=== PATIENT | female | born 1995 | race Caucasian/White ===

== ENCOUNTER 2020-04-24 22:39 | Inpatient (IN) | payer BC ==
[2020-04-24] MEDS ORDERED: Ampicillin 2 GM in Sodium Chloride 0.9% 100 ML IV ONE (23:17)
[2020-04-24] MEDS ORDERED: Sodium Chloride 0.9% 10 ML Syringe FLUSH PRN (23:17)
[2020-04-24] MEDS ORDERED: Ondansetron 4 MG/2 ML SDV IVPUSH PRN (23:17)
[2020-04-24] MEDS ORDERED: Calcium Carbonate 500 MG Tab.Chew PO PRN (23:17)
[2020-04-24] MEDS ORDERED: Oxytocin/Lactated Ringers 10 UNIT/1,000 ML BAG IV SCH (23:30)
[2020-04-25] MEDS ORDERED: Bupivacaine 0.25% 10 ML SDV ONE
[2020-04-25] MEDS ORDERED: fentaNYL 100 MCG/2 ML SDV EPIDUR PRN (01:14)
[2020-04-25] MEDS ORDERED: Ondansetron 4 MG/2 ML SDV IVPUSH PRN (01:14)
[2020-04-25] MEDS ORDERED: ePHEDrine 50 MG/ML SDV IVPUSH PRN (01:14)
[2020-04-25] MEDS ORDERED: Phenylephrine 1 MG in Sodium Chloride 0.9% 10 ML IV SCH (01:15)
--- NOTE | 2020-04-25 01:16 | PCM.PREANE ---
Preanesthetic Assessment - Procedure Proposed Procedure: RISSA - Anesthesia/Transfusion/Family Hx Anesthesia History: Prior Anesthesia Without Reaction Family History of Anesthesia Reaction: No Transfusion History: No Prior Transfusion(s) Intubation History: Unknown - Review of Systems General: No Symptoms Pulmonary: No Symptoms (Former smoker: 2015 quit) Cardiovascular: No Symptoms Gastrointestinal: No Symptoms (GERD) Neurological: No Symptoms Other: Reports: None, Easy Bruising, Sinus Problem (seasonal allergies) - Physical Assessment NPO Status Date: 04/24/20 NPO Status Time: 19:00 Vital Signs: Last Vital Signs Temp 36.8 C 04/24/20 22:39 Pulse 77 04/24/20 22:39 Resp 16 04/24/20 22:39 BP 131/75 04/24/20 22:39 Pulse Ox 98 04/24/20 22:39 Height: 1.6 m Weight: 109.588 kg ASA Class: 2 Mental Status: Alert & Oriented x3 Airway Class: Mallampati = 2 Dentition: Reports: Normal Dentition, Caries Thyro-Mental Finger Breadths: 3 Mouth Opening Finger Breadths: 3 ROM/Head Extension: Full Lungs: Clear to Auscultation, Normal Respiratory Effort Cardiovascular: Regular Rate, Regular Rhythm, No Murmurs - Lab Values: Laboratory Last Values WBC 12.67 K/mm3 (3.98-10.04) H 04/24/20 23:36 RBC 4.30 M/mm3 (3.98-5.22) 04/24/20 23:36 Hgb 12.5 gm/dl (11.2-15.7) 04/24/20 23:36 Hct 37.6 % (34.1-44.9) 04/24/20 23:36 MCV 87.4 fl (79.4-94.8) 04/24/20 23:36 MCH 29.1 pg (25.6-32.2) 04/24/20 23:36 MCHC 33.2 g/dl (32.2-35.5) 04/24/20 23:36 RDW Std Deviation 45.3 fL (36.4-46.3) 04/24/20 23:36 Plt Count 273 K/mm3 (182-369) 04/24/20 23:36 MPV 10.1 fl (9.4-12.3) 04/24/20 23:36 Neut % (Auto) 72.3 % (34.0-71.1) H 04/24/20 23:36 Lymph % (Auto) 19.7 % (19.3-51.7) 04/24/20 23:36 [place] % (Auto) 5.9 % (4.7-12.5) 04/24/20 23:36 Eos % (Auto) 1.7 (0.7-5.8) 04/24/20 23:36 Baso % (Auto) 0.2 % (0.1-1.2) 04/24/20 23:36 Neut # (Auto) 9.16 K/mm3 (1.56-6.13) H 04/24/20 23:36 Lymph # (Auto) 2.49 K/mm3 (1.18-3.74) 04/24/20 23:36 [place] # (Auto) 0.75 K/mm3 (0.24-0.36) H 04/24/20 23:36 Eos # (Auto) 0.22 K/mm3 (0.04-0.36) 04/24/20 23:36 Baso # (Auto) 0.03 K/mm3 (0.01-0.08) 04/24/20 23:36 COVID-19 (BARBARA) Negative (NEGATIVE) 04/24/20 23:45 Above labs reviewed and noted and within acceptable ranges to proceed with epidural if desired. 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: - Infectious 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 History Infectious Disease History: Reports: Chicken Pox - Past Surgical History HEENT Surgical History: Reports: Adenoidectomy, Myringotomy w Tube(s), Tonsillectomy - SUBSTANCE USE Smoking Status *Q: Former Smoker Tobacco Use Within Last Twelve Months: Cigarettes Recreational Drug Use History: No - HOME MEDS Home Medications: Home Meds Loratadine [Claritin] 10 mg PO DAILY 04/24/20 [History] Vits #93/Iron Fum/FA [ Formula Tablet] 1 each PO 04/24/20 [History] - CURRENT (IN HOUSE) MEDS Current Meds: Current Medications Calcium Carbonate/Glycine (Tums) 1,000 mg PO Q2H PRN PRN Reason: Indigestion Lactated Ringer's (Ringers, Lactated) 1,000 mls @ 100 mls/hr IV ASDIRECTED LEAH Ampicillin Sodium 1 gm/ Sodium (Chloride) 100 mls @ 200 mls/hr IV Q4H LEAH Oxytocin/Lactated Ringer's (Pitocin In Lr 10 Units/1,000 Ml) 10 unit in 1,000 mls @ 500 mls/hr IV .CONTINUOUS LEAH Ondansetron HCl (Zofran) 4 mg IVPUSH Q4H PRN PRN Reason: Nausea/Vomiting Sodium Chloride (Saline Flush) 10 ml FLUSH ASDIRECTED PRN PRN Reason: Keep Vein Open Discontinued Medications Ampicillin Sodium 2 gm/ Sodium (Chloride) 100 mls @ 200 mls/hr IV ONETIME ONE Stop: 04/24/20 23:46 Last Admin: 04/24/20 23:42 Dose: 200 mls/hr Documented by:
[2020-04-25] MEDS: Lactated Ringers 1,000 ML IV SCH ×5 (03:35→13:39)
[2020-04-25] MEDS: Ampicillin 1 GM in Sodium Chloride 0.9% 100 ML IV SCH ×4 (03:43→15:17)
[2020-04-25] MEDS: Bupivacaine/fentaNYL/NS 100 ML Bag EPIDUR SCH ×2 (04:43→13:33)
--- NOTE | 2020-04-25 06:26 | PCM.LDHP ---
L&D History of Present Illness - General Date of Service: 04/25/20 Admit Problem/Dx: Patient Status Order with Admit Dx/Problem 04/24/20 22:39 Patient Status [ADT] Routine 04/24/20 23:17 Patient Status [ADT] Routine Admission Diagnosis/Problem Admission Diagnosis/Problem Source of Information: Patient History Limitations: Reports: No Limitations - History of Present Illness Introduction:: 25 year old female at 40w1 presents with labor. Contractions began at 6 pm on day of admission and became increasingly painful. care with Dr. 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: - Infectious Disease History Infectious Disease History: Reports: Chicken Pox - Past Surgical History HEENT Surgical History: Reports: Adenoidectomy, Myringotomy w Tube(s), Tonsillectomy Social & Family History - Tobacco Use Smoking Status *Q: Former Smoker Packs/Tins Daily: 0.2 Used Tobacco, but Quit: Yes Month/Year Tobacco Last Used: 2015 - Recreational Drug Use Recreational Drug Use: No H&P Review of Systems - Review of Systems: Review Of Systems: See Below General: Reports: No Symptoms HEENT: Reports: No Symptoms Pulmonary: Reports: No Symptoms Cardiovascular: Reports: No Symptoms Gastrointestinal: Reports: No Symptoms Genitourinary: Reports: No Symptoms Musculoskeletal: Reports: No Symptoms Skin: Reports: No Symptoms Psychiatric: Reports: No Symptoms Neurological: Reports: No Symptoms Hematologic/Lymphatic: Reports: No Symptoms Immunologic: Reports: No Symptoms L&D Exam - Exam Exam: See Below - Vital Signs Vital Signs: Last Vital Signs Temp 36.8 C 04/24/20 22:39 Pulse 77 04/24/20 22:39 Resp 16 04/24/20 22:39 BP 131/75 04/24/20 22:39 Pulse Ox 98 04/24/20 22:39 Weight: 109.588 kg - OB Specific Contraction Intensity: Moderate to Strong Movement: Active Heart Tones: Present Heart Rate (FHR) Variability: Moderate (6-25 bmp) Presentation: Vertex - Arriaza Score Arriaza Score Cervix Position: Anterior Arriaza Score Consistency: Soft Arriaza Score Effacement: 51-70% Arriaza Score Dilation: 3-4 cm Arriaza Score 's Station: -3 Arriaza Score Total: 8 - Exam General: Alert, Oriented HEENT: PERRLA, Conjunctiva Clear, EACs Clear, EOMI, Hearing Intact, Mucosa Moist & [place], Nares Patent, Normal Nasal Septum, Posterior Pharynx Clear, TMs Clear Neck: Supple, Trachea Midline Lungs: Clear to Auscultation, Normal Respiratory Effort Cardiovascular: Regular Rate, Regular Rhythm GI/Abdominal Exam: Normal Bowel Sounds, Soft, Non-Tender, No Organomegaly, No Distention, No Abnormal Bruit, No Mass, Pelvis Stable Genitourinary: Normal external exam, Normal bimanual exam, Normal speculum exam Back Exam: Normal Inspection, Full Range of Motion Extremities: Normal Inspection, Normal Range of Motion, Non-Tender, No Pedal Edema, Normal Capillary Refill Skin: Warm, Dry, Intact Neurological: Cranial Nerves Intact, Reflexes Equal Bilateral Psychiatric: Alert, Normal Affect, Normal Mood - Patient Data Lab Results Last 24 hrs: Laboratory Results - last 24 hr 04/24/20 04/24/20 Range/Units 23:36 23:45 WBC 12.67 H (3.98-10.04) K/mm3 RBC 4.30 (3.98-5.22) M/mm3 Hgb 12.5 (11.2-15.7) gm/dl Hct 37.6 (34.1-44.9) % MCV 87.4 (79.4-94.8) fl MCH 29.1 (25.6-32.2) pg MCHC 33.2 (32.2-35.5) g/dl RDW Std Deviation 45.3 (36.4-46.3) fL Plt Count 273 (182-369) K/mm3 MPV 10.1 (9.4-12.3) fl Neut % (Auto) 72.3 H (34.0-71.1) % Lymph % (Auto) 19.7 (19.3-51.7) % [place] % (Auto) 5.9 (4.7-12.5) % Eos % (Auto) 1.7 (0.7-5.8) Baso % (Auto) 0.2 (0.1-1.2) % Neut # (Auto) 9.16 H (1.56-6.13) K/mm3 Lymph # (Auto) 2.49 (1.18-3.74) K/mm3 [place] # (Auto) 0.75 H (0.24-0.36) K/mm3 Eos # (Auto) 0.22 (0.04-0.36) K/mm3 Baso # (Auto) 0.03 (0.01-0.08) K/mm3 COVID-19 (BARBARA) Negative (NEGATIVE) Result Diagrams: 04/24/20 23:36 Problem List Initiated/Reviewed/Updated: Yes Orders Last 24hrs: Active Orders 24 hr Category Date Time Status Patient Status [ADT] Routine ADT 04/24/20 23:17 Active Activity as Tolerated [RC] PFP Care 04/24/20 23:17 Active Communication Order [RC] ASDIRECTED Care 04/24/20 23:17 Active Heart Tones [RC] ASDIRECTED Care 04/24/20 23:18 Active Non Stress Test [RC] PER UNIT ROUTINE Care 04/24/20 22:39 Active Notify Provider [RC] ASDIRECTED Care 04/25/20 01:14 Active Notify Provider [RC] PFP Care 04/24/20 23:17 Active Notify Provider [RC] PRN Care 04/24/20 23:17 Active Oxygen Therapy [RC] ASDIRECTED Care 04/25/20 01:14 Active Peripheral IV Care [RC] . DIRECTED Care 04/24/20 23:18 Active Pulse Oximetry [RC] ASDIRECTED Care 04/25/20 01:14 Active Urinary Catheter Assessment [RC] ASDIRECTED Care 04/25/20 03:49 Active Urinary Catheter Insertion [Insert Urinary Catheter] [ Care 04/25/20 04:00 Ordered OM.PC] Q24H Vital Signs [RC] PER UNIT ROUTINE Care 04/24/20 22:39 Active Regular Diet [DIET] Diet 04/24/20 Breakfast Active BLOOD BANK HOLD SPECIMEN [BBK] Stat Lab 04/24/20 23:17 Ordered RAPID PLASMA REAGIN,RPR [CHEM] Routine Lab 04/24/20 23:36 Received Ampicillin 1 gm Med 04/25/20 03:30 Active Sodium Chloride 0.9% [Normal Saline] 100 ml IV Q4H Bupivacaine/fentaNYL/NS [fentaNYL/Bupivacaine/NS 2 MCG- Med 04/25/20 01:15 Active 0.125% 100 ML] 100 ml EPIDUR ASDIRECTED Calcium Carbonate [Tums] Med 04/24/20 23:17 Active 1,000 mg PO Q2H PRN Lactated Ringers [Ringers, Lactated] 1,000 ml Med 04/24/20 23:30 Active IV ASDIRECTED Ondansetron [Zofran] Med 04/25/20 01:14 Active 4 mg IVPUSH ONETIME PRN Ondansetron [Zofran] Med 04/24/20 23:17 Active 4 mg IVPUSH Q4H PRN Oxytocin/Lactated Ringers [Pitocin in LR 10 Units/1,000 Med 04/24/20 23:30 Active ML] 10 unit in 1,000 ml IV .CONTINUOUS Phenylephrine [[place]onatan-Synephrine] 1 mg Med 04/25/20 01:15 Active Sodium Chloride 0.9% [Normal Saline] 10 ml IV TITRATE Sodium Chloride 0.9% [Saline Flush] Med 04/24/20 23:17 Active 10 ml FLUSH ASDIRECTED PRN ePHEDrine [ePHEDrine sulfate] Med 04/25/20 01:14 Active 5 mg IVPUSH ASDIRECTED PRN fentaNYL [Sublimaze] Med 04/25/20 01:14 Active 100 mcg EPIDUR Q3H PRN Electronic Heart Tones Ext w TOCO [WOMSER] Oth 04/24/20 23:17 Ordered Routine Electronic Heart Tones Internal [WOMSER] Per Unit Oth 04/24/20 23:17 Ordered Routine Peripheral IV Insertion Adult [OM.PC] Routine Oth 04/24/20 23:17 Ordered Resuscitation Status Routine Resus Stat 04/24/20 22:39 Ordered Medication Orders Calcium Carbonate/Glycine (Tums) 1,000 mg PO Q2H PRN PRN Reason: Indigestion Ephedrine Sulfate (Ephedrine Sulfate) 5 mg IVPUSH ASDIRECTED PRN PRN Reason: Hypotension Fentanyl (Sublimaze) 100 mcg EPIDUR Q3H PRN PRN Reason: Pain Last Admin: 04/25/20 04:43 Dose: 100 mcg Documented by: LAWSON Fentanyl/Bupivacaine HCl (Fentanyl/Bupivacaine/Ns 2 Mcg-0.125% 100 Ml) 100 ml EPIDUR ASDIRECTED [facility] Last Admin: 04/25/20 04:43 Dose: 100 ml Documented by: LAWSON Lactated Ringer's (Ringers, Lactated) 1,000 mls @ 100 mls/hr IV ASDIRECTED [facility] Last Admin: 04/25/20 05:52 Dose: 100 mls/hr Documented by: Infusion: 04/25/20 05:52 Dose: 100 mls/hr Documented by: Admin: 04/25/20 05:01 Dose: 100 mls/hr Documented by: Infusion: 04/25/20 05:01 Dose: 100 mls/hr Documented by: Admin: 04/25/20 03:35 Dose: 100 mls/hr Documented by: LAWSON Ampicillin Sodium 1 gm/ Sodium (Chloride) 100 mls @ 200 mls/hr IV Q4H [facility] Last Admin: 04/25/20 03:43 Dose: 200 mls/hr Documented by: LAWSON Oxytocin/Lactated Ringer's (Pitocin In Lr 10 Units/1,000 Ml) 10 unit in 1,000 mls @ 500 mls/hr IV .CONTINUOUS [facility] Phenylephrine HCl 1 mg/ Sodium (Chloride) 10.1 mls @ 1 mls/sec IV TITRATE LEAH; Protocol Ondansetron HCl (Zofran) 4 mg IVPUSH Q4H PRN PRN Reason: Nausea/Vomiting Ondansetron HCl (Zofran) 4 mg IVPUSH ONETIME PRN PRN Reason: Nausea/Vomiting Sodium Chloride (Saline Flush) 10 ml FLUSH ASDIRECTED PRN PRN Reason: Keep Vein Open Assessment/Plan Comment:: Term labor. GBS positive - antibiotics initiated. Desires epidural. Anticipate Dr. Wing will assume care in morning.
--- NOTE | 2020-04-25 07:01 | PCM.PNLD ---
Labor Progress Note - VS & Meds Vital Signs: Last Vital Signs Temp 36.8 C 04/24/20 22:39 Pulse 77 04/24/20 22:39 Resp 16 04/24/20 22:39 BP 131/75 04/24/20 22:39 Pulse Ox 98 04/24/20 22:39 Active Medications: Current Medications Calcium Carbonate/Glycine (Tums) 1,000 mg PO Q2H PRN PRN Reason: Indigestion Ephedrine Sulfate (Ephedrine Sulfate) 5 mg IVPUSH ASDIRECTED PRN PRN Reason: Hypotension Fentanyl (Sublimaze) 100 mcg EPIDUR Q3H PRN PRN Reason: Pain Last Admin: 04/25/20 04:43 Dose: 100 mcg Documented by: Fentanyl/Bupivacaine HCl (Fentanyl/Bupivacaine/Ns 2 Mcg-0.125% 100 Ml) 100 ml EPIDUR ASDIRECTED [facility] Last Admin: 04/25/20 04:43 Dose: 100 ml Documented by: Lactated Ringer's (Ringers, Lactated) 1,000 mls @ 100 mls/hr IV ASDIRECTED LEAH Last Admin: 04/25/20 05:52 Dose: 100 mls/hr Documented by: Ampicillin Sodium 1 gm/ Sodium (Chloride) 100 mls @ 200 mls/hr IV Q4H [facility] Last Admin: 04/25/20 03:43 Dose: 200 mls/hr Documented by: Oxytocin/Lactated Ringer's (Pitocin In Lr 10 Units/1,000 Ml) 10 unit in 1,000 mls @ 500 mls/hr IV .CONTINUOUS [facility] Phenylephrine HCl 1 mg/ Sodium (Chloride) 10.1 mls @ 1 mls/sec IV TITRATE LEAH; Protocol Ondansetron HCl (Zofran) 4 mg IVPUSH Q4H PRN PRN Reason: Nausea/Vomiting Ondansetron HCl (Zofran) 4 mg IVPUSH ONETIME PRN PRN Reason: Nausea/Vomiting Sodium Chloride (Saline Flush) 10 ml FLUSH ASDIRECTED PRN PRN Reason: Keep Vein Open Discontinued Medications Ampicillin Sodium 2 gm/ Sodium (Chloride) 100 mls @ 200 mls/hr IV ONETIME ONE Stop: 04/24/20 23:46 Last Admin: 04/24/20 23:42 Dose: 200 mls/hr Documented by: - Uterine Contractions Uterine Monitoring Mode: External [place] Contraction Intensity: Moderate to Strong - Monitoring Monitor Mode: External Ultrasound Heart Rate (FHR) Baseline: 125 Heart Rate (FHR) Variability: Moderate (6-25 bmp) Accelerations: Present, 15x15 Decelerations: Early Strip Review: Category I - Labor Progress (Free Text) Labor Progress: Patient doing well. Comfortable with epidural. Has received 2nd dose of antibiotics. Will continue to allow patient to labor on her own. Will AROM if needed.
--- NOTE | 2020-04-25 12:09 | PCM.PNLD ---
Labor Progress Note - VS & Meds Vital Signs: Last Vital Signs Temp 36.8 C 04/24/20 22:39 Pulse 77 04/24/20 22:39 Resp 16 04/24/20 22:39 BP 131/75 04/24/20 22:39 Pulse Ox 98 04/24/20 22:39 Active Medications: Current Medications Calcium Carbonate/Glycine (Tums) 1,000 mg PO Q2H PRN PRN Reason: Indigestion Ephedrine Sulfate (Ephedrine Sulfate) 5 mg IVPUSH ASDIRECTED PRN PRN Reason: Hypotension Fentanyl (Sublimaze) 100 mcg EPIDUR Q3H PRN PRN Reason: Pain Last Admin: 04/25/20 04:43 Dose: 100 mcg Documented by: Fentanyl/Bupivacaine HCl (Fentanyl/Bupivacaine/Ns 2 Mcg-0.125% 100 Ml) 100 ml EPIDUR ASDIRECTED [facility] Last Admin: 04/25/20 04:43 Dose: 100 ml Documented by: Lactated Ringer's (Ringers, Lactated) 1,000 mls @ 100 mls/hr IV ASDIRECTED LEAH Last Admin: 04/25/20 07:59 Dose: 100 mls/hr Documented by: Ampicillin Sodium 1 gm/ Sodium (Chloride) 100 mls @ 200 mls/hr IV Q4H [facility] Last Admin: 04/25/20 11:08 Dose: 200 mls/hr Documented by: Oxytocin/Lactated Ringer's (Pitocin In Lr 10 Units/1,000 Ml) 10 unit in 1,000 mls @ 500 mls/hr IV .CONTINUOUS [facility] Phenylephrine HCl 1 mg/ Sodium (Chloride) 10.1 mls @ 1 mls/sec IV TITRATE LEAH; Protocol Ondansetron HCl (Zofran) 4 mg IVPUSH Q4H PRN PRN Reason: Nausea/Vomiting Ondansetron HCl (Zofran) 4 mg IVPUSH ONETIME PRN PRN Reason: Nausea/Vomiting Sodium Chloride (Saline Flush) 10 ml FLUSH ASDIRECTED PRN PRN Reason: Keep Vein Open Discontinued Medications Ampicillin Sodium 2 gm/ Sodium (Chloride) 100 mls @ 200 mls/hr IV ONETIME ONE Stop: 04/24/20 23:46 Last Admin: 04/24/20 23:42 Dose: 200 mls/hr Documented by: - Uterine Contractions Uterine Monitoring Mode: External [place] Contraction Intensity: Moderate to Strong - Monitoring Monitor Mode: External Ultrasound Heart Rate (FHR) Baseline: 125 Heart Rate (FHR) Variability: Moderate (6-25 bmp) Accelerations: Present, 15x15 Decelerations: Early Strip Review: Category I - Vaginal Exam Dilation (cm): 8-9 Effacement (Percent): 90 Station: -1 Cervical Position: Midposition - Labor Progress (Free Text) Labor Progress: Patient doing well. Did have contractions space out and so was started on pitocin. Attempted to AROM, but no real gush of fluid appreciated. Exam about 8-9 and 90%. Station is -1. Doing well. Continue current management
[2020-04-25] MEDS ORDERED: Oxytocin/Lactated Ringers 10 UNIT/1,000 ML BAG IV SCH (12:15)
--- NOTE | 2020-04-25 18:42 | PCM.DEL ---
L & D Note - General Info Date of Service: 04/25/20 - Delivery Note Labor: Augmented by Oxytocin Delivery Outcome: Livebirth Delivery Method: Spontaneous Vaginal Delivery-Single Delivery Mode: Spontaneous Presentation: Right Occiput Anterior (LYSSA) Nuchal Cord: None Anesthesia Type: Epidural Amniotic Fluid Description: Clear Episiotomy Type: None Laceration: 2nd Degree, Perineal Suture type: Vicryl Suture size: 2-0 Placenta: Intact, Spontaneous Cord: 3 Vessels Estimated Blood Loss: 200 Resuscitation Needed: Yes [place]: Bulb Syringe, Stimulated, Warmed, [place] Used, Warmer Used Delivery Comments (Free Text/Narrative):: The patient was pushing in the dorsal lithotomy position. Sterile vaginal exam complete/complete/+3 station. head in LYSSA presentation. Maternal pushing effort was good and the pelvis was felt to be adequate for an instrument assisted delivery. Given maternal exhaustion/request (had been pushing slightly greater than 2 hours) the decision was made to proceed with vacuum assisted vaginal delivery. The mushroom cup was placed without difficulty at 1815. Subsequent vacuum assisted vaginal delivery with pushing over 3 contractions. Total pressure applied 550 mm Hg. Total pop offs 0. Suction was removed following delivery of the head. No nuchal cord. The remainder of the infant delivered without difficulty - delivery at 1818. Infant placed on maternal abdomen. Cord clamped and cut. Cord blood obtained. Placenta allowed time to separate and expelled intact. Inspection of the perineum following delivery with a 2nd degree laceration. This was repaired with a 2-0 Vicryl in the typical fashion. Vacuum Extractor Progress Note - Alternative Labor Strategies Considered Alternative Labor Strategies Considered:: Reports: Yes Strategies Considered:: Reports: Contraction Intensity Adequate, Position Changes Used to Facilitate Rotation & Descent, Empty Bladder, Rest Indications Considered:: Reports: Yes Indications:: Reports: Shortening of 2nd Stage for Maternal Benefit Time Out:: Reports: Yes - Patient Prepared Patient Prepared:: Reports: Yes Informed Consent:: Reports: Verbal Risks: Reports: Yes Risks Include:: Reports: Laceration, Maternal Injury, Other Anesthesia/Analgesia Adequate:: Reports: Yes - Probability of Success High Probability of Success:: Reports: Yes Weight Estimated:: Reports: AGA Patient Diabetic:: Reports: No Pelvis Adequate:: Reports: Yes Position:: LYSSA Asynclitic:: Reports: No Station:: +3 - Application Time Maximum Application Time & Number of Pop-Offs Predetermined:: Reports: Yes Maximum Pressure Maintained in [place] (cm Hg):: 550 Total Application Time (min): *max=20min: 3 Number of Times Cup Disengaged:: 0 Type of Vacuum Used:: Reports: Cup: Mushroom type Vacuum Extraction: Successful - Exit Strategy Exit strategy available:: Reports: Yes and resuscitation teams readily available:: Reports: Yes - General Info Date of Service: 04/25/20 - Patient Data Vitals - Most Recent: Last Vital Signs Temp 36.8 C 04/24/20 22:39 Pulse 77 04/24/20 22:39 Resp 16 04/24/20 22:39 BP 131/75 04/24/20 22:39 Pulse Ox 98 04/24/20 22:39 Weight - Most Recent: 109.588 kg I&O - Last 24 Hours: Intake & Output 04/25/20 04/25/20 04/25/20 06:59 14:59 22:59 Intake Total 2200 1200 240 Balance 2200 1200 240 - Problem List & Annotations (1) 40 weeks gestation of SNOMED Code(s): 99065199 Code(s): Z3A.40 - 40 WEEKS GESTATION OF Status: Acute Current Visit: Yes (2) Vacuum-assisted vaginal delivery SNOMED Code(s): 34621262321913669 Code(s): Z37.9 - OUTCOME OF DELIVERY, UNSPECIFIED Status: Acute Current Visit: Yes - Problem List Review Problem List Initiated/Reviewed/Updated: Yes - My Orders Last 24 Hours: My Active Orders 04/25/20 12:15 Oxytocin/Lactated Ringers [Pitocin in LR 10 Units/1,000 ML] 10 unit in 1,000 ml IV TITRATE 04/25/20 18:40 Patient Status Manage Transfer [TRANSFER] Routine - Assessment Assessment:: PPD#0 - Plan Plan:: Routine cares Breast feeding Discharge home in 2 days
[2020-04-25] MEDS ORDERED: Acetaminophen 325 MG Tab PO PRN (19:09)
[2020-04-25] MEDS ORDERED: Benzocaine/Menthol 20%-0.5% Spray 56 GM Canister TOP PRN (19:09)
[2020-04-25] MEDS ORDERED: Witch Hazel Medicated Pads 40/Jar TOP PRN (19:09)
[2020-04-25] MEDS: Ibuprofen 600 MG Tab PO PRN (20:21)
[2020-04-25] MEDS: Docusate Sodium 100 MG Cap PO PRN (20:21)
[2020-04-26] MEDS: Ibuprofen 600 MG Tab PO PRN ×3 (05:39→18:48)
--- NOTE | 2020-04-26 07:06 | PCM.PNPP ---
- General Info Date of Service: 04/26/20 Functional Status: Reports: Pain Controlled, Tolerating Diet, Ambulating, Urinating - Review of Systems General: Reports: No Symptoms Pulmonary: Reports: No Symptoms Cardiovascular: Reports: No Symptoms Gastrointestinal: Reports: No Symptoms Genitourinary: Reports: No Symptoms Musculoskeletal: Reports: No Symptoms Neurological: Reports: No Symptoms - General Info Date of Service: 04/26/20 - Patient Data Vital Signs - Most Recent: Last Vital Signs Temp 36.7 C 04/26/20 05:31 Pulse 78 04/26/20 05:31 Resp 14 04/26/20 05:31 BP 124/69 04/26/20 05:31 Pulse Ox 95 04/26/20 05:31 Weight - Most Recent: 109.588 kg I&O - Last 24 Hours: Intake & Output 04/25/20 04/26/20 04/26/20 22:59 06:59 14:59 Intake Total 2240 Balance 2240 Lab Results - Last 24 Hours: Laboratory Results - last 24 hr 04/24/20 Range/Units 23:36 RPR Non-reactive (NONREACTIVE) Med Orders - Current: Current Medications Acetaminophen (Tylenol) 650 mg PO Q4H PRN PRN Reason: mild pain or fever Benzocaine/Menthol (Dermoplast Pain Relief [place]) 0 gm TOP ASDIRECTED PRN PRN Reason: Perineal Comfort Measure Last Admin: 04/25/20 20:20 Dose: 1 canister Documented by: Docusate Sodium (Colace) 100 mg PO BID PRN PRN Reason: Constipation Last Admin: 04/25/20 20:21 Dose: 100 mg Documented by: Ibuprofen (Motrin) 600 mg PO Q6H PRN PRN Reason: Mild pain or fever Last Admin: 04/26/20 05:39 Dose: 600 mg Documented by: Pepe Flores (Tucks) 1 pad TOP ASDIRECTED PRN PRN Reason: Perineal Comfort Measure Last Admin: 04/25/20 20:20 Dose: 1 canister Documented by: Discontinued Medications Calcium Carbonate/Glycine (Tums) 1,000 mg PO Q2H PRN PRN Reason: Indigestion Ephedrine Sulfate (Ephedrine Sulfate) 5 mg IVPUSH ASDIRECTED PRN PRN Reason: Hypotension Fentanyl (Sublimaze) 100 mcg EPIDUR Q3H PRN PRN Reason: Pain Last Admin: 04/25/20 04:43 Dose: 100 mcg Documented by: Fentanyl/Bupivacaine HCl (Fentanyl/Bupivacaine/Ns 2 Mcg-0.125% 100 Ml) 100 ml EPIDUR ASDIRECTED LEAH Last Admin: 04/25/20 13:33 Dose: 100 ml Documented by: Lactated Ringer's (Ringers, Lactated) 1,000 mls @ 100 mls/hr IV ASDIRECTED LEAH Last Admin: 04/25/20 13:39 Dose: 100 mls/hr Documented by: Ampicillin Sodium 2 gm/ Sodium (Chloride) 100 mls @ 200 mls/hr IV ONETIME ONE Stop: 04/24/20 23:46 Last Admin: 04/24/20 23:42 Dose: 200 mls/hr Documented by: Ampicillin Sodium 1 gm/ Sodium (Chloride) 100 mls @ 200 mls/hr IV Q4H LEAH Last Admin: 04/25/20 15:17 Dose: 200 mls/hr Documented by: Oxytocin/Lactated Ringer's (Pitocin In Lr 10 Units/1,000 Ml) 10 unit in 1,000 mls @ 500 mls/hr IV .CONTINUOUS LEAH Phenylephrine HCl 1 mg/ Sodium (Chloride) 10.1 mls @ 1 mls/sec IV TITRATE LEAH; Protocol Oxytocin/Lactated Ringer's (Pitocin In Lr 10 Units/1,000 Ml) 10 unit in 1,000 mls @ 12 mls/hr IV TITRATE LEAH; Protocol Last Titration: 04/25/20 16:18 Dose: 8 munits/min, 48 mls/hr Documented by: Ondansetron HCl (Zofran) 4 mg IVPUSH Q4H PRN PRN Reason: Nausea/Vomiting Ondansetron HCl (Zofran) 4 mg IVPUSH ONETIME PRN PRN Reason: Nausea/Vomiting Sodium Chloride (Saline Flush) 10 ml FLUSH ASDIRECTED PRN PRN Reason: Keep Vein Open - Interaction Infant Disposition, : [place] in Room with Family Infant Interaction: Holding Infant Feeding: Attempted ; Nursed Fair/Poor Support Person: - Recovery Exam Fundal Tone: Firm Fundal Level: 1 Fingerbreadths Below Umbilicus Fundal Placement: Midline Lochia Amount: Small Lochia Color: Rubra/Red Perineum Description: Other (see below) Other Perinuem Description: 2nd degree repaired Episiotomy/Laceration: Approximated Bladder Status: Voiding Urinary Elimination: Voided - Exam General: Alert, Oriented, Cooperative GI/Abdominal Exam: Soft, Non-Tender Extremities: Normal Inspection Skin: Warm, Dry, Intact - Problem List & Annotations (1) 40 weeks gestation of SNOMED Code(s): 36472992 Code(s): Z3A.40 - 40 WEEKS GESTATION OF Status: Acute Current Visit: Yes (2) Vacuum-assisted vaginal delivery SNOMED Code(s): 00764714921298092 Code(s): Z37.9 - OUTCOME OF DELIVERY, UNSPECIFIED Status: Acute Current Visit: Yes - Problem List Review Problem List Initiated/Reviewed/Updated: Yes - My Orders Last 24 Hours: My Active Orders 04/25/20 Dinner Regular Diet [DIET] 04/25/20 19:09 Acetaminophen [TylenoL] 650 mg PO Q4H PRN Benzocaine/Menthol [Dermoplast Pain Relief [place]] See Dose Instructions TOP ASDIRECTED PRN Docusate Sodium [Colace] 100 mg PO BID PRN Ibuprofen [Motrin] 600 mg PO Q6H PRN witch [place] [Tucks] 1 pad TOP ASDIRECTED PRN Heat Therapy [OM.PC] PRN 04/25/20 19:09 Activity as Tolerated [RC] PER UNIT ROUTINE Vital Signs [RC] 03,09,15,21 Assess Lochia [WOMSER] Per Unit Routine Assess Uterine Involution [WOMSER] Per Unit Routine Breast Pump [WOMSER] Per Unit Routine Ice Therapy [OM.PC] Per Unit Routine Medication Administration Instruction [OM.PC] Routine Perineal Care [OM.PC] Per Unit Routine Peripheral IV Discontinue [OM.PC] Routine Sitz Bath [OM.PC] Per Unit Routine 04/26/20 19:09 Heat Therapy [OM.PC] PRN - Assessment Assessment:: PPD#1 - Plan Plan:: Routine cares Breast feeding Discharge home tomorrow
--- NOTE | 2020-04-26 19:41 | PCM48HPAN ---
Post Anesthesia Note - EVALUATION WITHIN 48HRS OF ANESTHETIC Vital Signs in Normal Range: Yes Patient Participated in Evaluation: Yes Respiratory Function Stable: Yes Airway Patent: Yes Cardiovascular Function Stable: Yes Hydration Status Stable: Yes Pain Control Satisfactory: Yes Nausea and Vomiting Control Satisfactory: Yes Mental Status Recovered: Yes Vital Signs: Last Vital Signs Temp 36.7 C 04/26/20 05:31 Pulse 83 04/26/20 08:14 Resp 16 04/26/20 08:14 BP 122/69 04/26/20 08:14 Pulse Ox 94 L 04/26/20 08:14
[2020-04-26] MEDS: Docusate Sodium 100 MG Cap PO PRN (19:46)
[2020-04-27] MEDS: Ibuprofen 600 MG Tab PO PRN ×2 (00:56→09:24)
--- NOTE | 2020-04-27 06:29 | PCM.PNPP ---
- General Info Date of Service: 04/27/20 Functional Status: Reports: Pain Controlled, Tolerating Diet, Ambulating, Urinating - Review of Systems General: Reports: No Symptoms Pulmonary: Reports: No Symptoms Cardiovascular: Reports: No Symptoms Gastrointestinal: Reports: No Symptoms Genitourinary: Reports: No Symptoms Musculoskeletal: Reports: No Symptoms Neurological: Reports: No Symptoms - Patient Data Vital Signs - Most Recent: Last Vital Signs Temp 36.8 C 04/27/20 03:18 Pulse 76 04/27/20 03:18 Resp 18 04/27/20 03:18 BP 116/54 L 04/27/20 03:18 Pulse Ox 98 04/27/20 03:18 Weight - Most Recent: 109.588 kg I&O - Last 24 Hours: Intake & Output 04/26/20 04/26/20 04/27/20 14:59 22:59 06:59 Intake Total 240 Balance 240 Med Orders - Current: Current Medications Acetaminophen (Tylenol) 650 mg PO Q4H PRN PRN Reason: mild pain or fever Benzocaine/Menthol (Dermoplast Pain Relief [place]) 0 gm TOP ASDIRECTED PRN PRN Reason: Perineal Comfort Measure Last Admin: 04/25/20 20:20 Dose: 1 canister Documented by: Docusate Sodium (Colace) 100 mg PO BID PRN PRN Reason: Constipation Last Admin: 04/26/20 19:46 Dose: 100 mg Documented by: Ibuprofen (Motrin) 600 mg PO Q6H PRN PRN Reason: Mild pain or fever Last Admin: 04/27/20 00:56 Dose: 600 mg Documented by: Pepe Flores ([place]) 1 pad TOP ASDIRECTED PRN PRN Reason: Perineal Comfort Measure Last Admin: 04/25/20 20:20 Dose: 1 canister Documented by: Discontinued Medications Bupivacaine HCl (Sensorcaine-Mpf 0.25%) 10 ml .ROUTE .STK-MED ONE Stop: 04/25/20 00:01 Calcium Carbonate/Glycine (Tums) 1,000 mg PO Q2H PRN PRN Reason: Indigestion Ephedrine Sulfate (Ephedrine Sulfate) 5 mg IVPUSH ASDIRECTED PRN PRN Reason: Hypotension Fentanyl (Sublimaze) 100 mcg EPIDUR Q3H PRN PRN Reason: Pain Last Admin: 04/25/20 04:43 Dose: 100 mcg Documented by: Fentanyl/Bupivacaine HCl (Fentanyl/Bupivacaine/Ns 2 Mcg-0.125% 100 Ml) 100 ml EPIDUR ASDIRECTED LEAH Last Admin: 04/25/20 13:33 Dose: 100 ml Documented by: Lactated Ringer's (Ringers, Lactated) 1,000 mls @ 100 mls/hr IV ASDIRECTED LEAH Last Admin: 04/25/20 13:39 Dose: 100 mls/hr Documented by: Ampicillin Sodium 2 gm/ Sodium (Chloride) 100 mls @ 200 mls/hr IV ONETIME ONE Stop: 04/24/20 23:46 Last Admin: 04/24/20 23:42 Dose: 200 mls/hr Documented by: Ampicillin Sodium 1 gm/ Sodium (Chloride) 100 mls @ 200 mls/hr IV Q4H LEAH Last Admin: 04/25/20 15:17 Dose: 200 mls/hr Documented by: Oxytocin/Lactated Ringer's (Pitocin In Lr 10 Units/1,000 Ml) 10 unit in 1,000 mls @ 500 mls/hr IV .CONTINUOUS LEAH Phenylephrine HCl 1 mg/ Sodium (Chloride) 10.1 mls @ 1 mls/sec IV TITRATE LEAH; Protocol Oxytocin/Lactated Ringer's (Pitocin In Lr 10 Units/1,000 Ml) 10 unit in 1,000 mls @ 12 mls/hr IV TITRATE LEAH; Protocol Last Titration: 04/25/20 16:18 Dose: 8 munits/min, 48 mls/hr Documented by: Ondansetron HCl (Zofran) 4 mg IVPUSH Q4H PRN PRN Reason: Nausea/Vomiting Ondansetron HCl (Zofran) 4 mg IVPUSH ONETIME PRN PRN Reason: Nausea/Vomiting Sodium Chloride (Saline Flush) 10 ml FLUSH ASDIRECTED PRN PRN Reason: Keep Vein Open - Infant Interaction Disposition, : [place] in Room with Family Interaction: Holding Infant Infant Feeding: Attempted ; Nursed Fair/Poor Support Person: - Recovery Exam Fundal Tone: Firm Fundal Level: 1 Fingerbreadths Below Umbilicus Fundal Placement: Midline Lochia Amount: Small Lochia Color: Rubra/Red Perineum Description: Other (see below) Other Perinuem Description: 2nd degree repaired Episiotomy/Laceration: Approximated Bladder Status: Voiding Urinary Elimination: Voided - Exam General: Alert, Oriented, Cooperative GI/Abdominal Exam: Soft, Non-Tender Extremities: Normal Inspection Skin: Warm, Dry, Intact - Problem List & Annotations (1) 40 weeks gestation of SNOMED Code(s): 08454517 Code(s): Z3A.40 - 40 WEEKS GESTATION OF Status: Acute Current Visit: Yes (2) Vacuum-assisted vaginal delivery SNOMED Code(s): 91800891136718775 Code(s): Z37.9 - OUTCOME OF DELIVERY, UNSPECIFIED Status: Acute Current Visit: Yes - Problem List Review Problem List Initiated/Reviewed/Updated: Yes - My Orders Last 24 Hours: My Active Orders 04/26/20 19:09 Heat Therapy [OM.PC] PRN 04/27/20 06:29 Ready for Discharge [RC] PER UNIT ROUTINE - Assessment Assessment:: PPD#2 - Plan Plan:: Routine cares Breast feeding Discharge home today
--- NOTE | 2020-04-27 06:29 | PCM.DCSUM1 ---
Discharge Summary - Discharge Data Discharge Date: 04/27/20 Discharge Disposition: Home, Self-Care 01 Condition: Good - Referral to Home Health Primary Care Physician: Millicent Vance MD - Discharge Diagnosis/Problem(s) (1) 40 weeks gestation of SNOMED Code(s): 69494985 ICD Code: Z3A.40 - 40 WEEKS GESTATION OF Status: Acute Current Visit: Yes (2) Vacuum-assisted vaginal delivery SNOMED Code(s): 04267186751088859 ICD Code: Z37.9 - OUTCOME OF DELIVERY, UNSPECIFIED Status: Acute Current Visit: Yes - Patient Summary/Data Complications: None Consults: None Recommended Follow-up Testing/Procedures: Follow up in 3 weeks for check Hospital Course: 25 y/o admitted at 40 2/7 wks with labor. Progressed well. Did undergo a vacuum assisted vaginal delivery for maternal exhaustion. See delivery note. di well and was discharged home on PPD#2 - Patient Instructions Diet: Regular Diet as Tolerated Activity: As Tolerated Activity, Other: Pelvic Rest for 6 weeks Driving: May Drive Today Showering/Bathing: May Shower Showering/Bathing, Other: May Bathe Notify Provider of: Fever, Increased Pain, Swelling and Redness, Drainage, Nausea and/or Vomiting - Discharge Plan *PRESCRIPTION DRUG MONITORING PROGRAM REVIEWED*: No *COPY OF PRESCRIPTION DRUG MONITORING REPORT IN PATIENT JEOVANY: No Home Medications: Home Meds Vits #93/Iron Fum/FA [ Formula Tablet] 1 each PO 04/24/20 [History] Docusate Sodium [Colace] 100 mg PO BID PRN cap 04/27/20 [Rx] Ibuprofen [Motrin] 600 mg PO Q6H PRN tablet 04/27/20 [Rx] Referrals: Deidre Wing MD [Physician] - (3 weeks - check. Can be telehealth visit ) - Discharge Summary/Plan Comment DC Time >30 min.: No - Patient Data Vitals - Most Recent: Last Vital Signs Temp 36.8 C 04/27/20 03:18 Pulse 76 04/27/20 03:18 Resp 18 04/27/20 03:18 BP 116/54 L 04/27/20 03:18 Pulse Ox 98 04/27/20 03:18 Weight - Most Recent: 109.588 kg I&O - Last 24 hours: Intake & Output 04/26/20 04/26/20 04/27/20 14:59 22:59 06:59 Intake Total 240 Balance 240 Med Orders - Current: Current Medications Acetaminophen (Tylenol) 650 mg PO Q4H PRN PRN Reason: mild pain or fever Benzocaine/Menthol (Dermoplast Pain Relief [place]) 0 gm TOP ASDIRECTED PRN PRN Reason: Perineal Comfort Measure Last Admin: 04/25/20 20:20 Dose: 1 canister Documented by: Docusate Sodium (Colace) 100 mg PO BID PRN PRN Reason: Constipation Last Admin: 04/26/20 19:46 Dose: 100 mg Documented by: Ibuprofen (Motrin) 600 mg PO Q6H PRN PRN Reason: Mild pain or fever Last Admin: 04/27/20 00:56 Dose: 600 mg Documented by: Pepe Flores ([place]) 1 pad TOP ASDIRECTED PRN PRN Reason: Perineal Comfort Measure Last Admin: 04/25/20 20:20 Dose: 1 canister Documented by: Discontinued Medications Bupivacaine HCl (Sensorcaine-Mpf 0.25%) 10 ml .ROUTE .STK-MED ONE Stop: 04/25/20 00:01 Calcium Carbonate/Glycine (Tums) 1,000 mg PO Q2H PRN PRN Reason: Indigestion Ephedrine Sulfate (Ephedrine Sulfate) 5 mg IVPUSH ASDIRECTED PRN PRN Reason: Hypotension Fentanyl (Sublimaze) 100 mcg EPIDUR Q3H PRN PRN Reason: Pain Last Admin: 04/25/20 04:43 Dose: 100 mcg Documented by: Fentanyl/Bupivacaine HCl (Fentanyl/Bupivacaine/Ns 2 Mcg-0.125% 100 Ml) 100 ml EPIDUR ASDIRECTED [facility] Last Admin: 04/25/20 13:33 Dose: 100 ml Documented by: Lactated Ringer's (Ringers, Lactated) 1,000 mls @ 100 mls/hr IV ASDIRECTED [facility] Last Admin: 04/25/20 13:39 Dose: 100 mls/hr Documented by: Ampicillin Sodium 2 gm/ Sodium (Chloride) 100 mls @ 200 mls/hr IV ONETIME ONE Stop: 04/24/20 23:46 Last Admin: 04/24/20 23:42 Dose: 200 mls/hr Documented by: Ampicillin Sodium 1 gm/ Sodium (Chloride) 100 mls @ 200 mls/hr IV Q4H LEAH Last Admin: 04/25/20 15:17 Dose: 200 mls/hr Documented by: Oxytocin/Lactated Ringer's (Pitocin In Lr 10 Units/1,000 Ml) 10 unit in 1,000 mls @ 500 mls/hr IV .CONTINUOUS LEAH Phenylephrine HCl 1 mg/ Sodium (Chloride) 10.1 mls @ 1 mls/sec IV TITRATE LEAH; Protocol Oxytocin/Lactated Ringer's (Pitocin In Lr 10 Units/1,000 Ml) 10 unit in 1,000 mls @ 12 mls/hr IV TITRATE LEAH; Protocol Last Titration: 04/25/20 16:18 Dose: 8 munits/min, 48 mls/hr Documented by: Ondansetron HCl (Zofran) 4 mg IVPUSH Q4H PRN PRN Reason: Nausea/Vomiting Ondansetron HCl (Zofran) 4 mg IVPUSH ONETIME PRN PRN Reason: Nausea/Vomiting Sodium Chloride (Saline Flush) 10 ml FLUSH ASDIRECTED PRN PRN Reason: Keep Vein Open
[2020-04-27] MEDS: Docusate Sodium 100 MG Cap PO PRN (09:25)
== END 2020-04-27 12:30 | disposition home or self-care (01) | DRG 560 ==
LOC: JD.OBCHECK 22:39 → JD.OB 22:39 → JD.OBCHECK 23:16 → JD.OB 23:17 → OBSVTOIN 04-25 18:18 → JD.OB 04-25 18:19 → JD.MS 04-27 04:17
PROVIDERS: ADMIT Obstetrics & Gynecology; ATTEND Obstetrics & Gynecology
PROC: 10D07Z6 Extraction of Products of Conception, Vacuum, Via Natural or Artificial Opening (ICD-10-PCS; principal; 2020-04-25)
PROC: 10907ZC Drainage of Amniotic Fluid, Therapeutic from Products of Conception, Via Natural or Artificial Opening (ICD-10-PCS; 2020-04-25)
PROC: 0KQM0ZZ Repair Perineum Muscle, Open Approach (ICD-10-PCS; 2020-04-25)
PROC: 3E0R3BZ Introduction of Anesthetic Agent into Spinal Canal, Percutaneous Approach (ICD-10-PCS; 2020-04-25)
DX: O99.824 Streptococcus B carrier state complicating childbirth (principal); Z3A.40 40 weeks gestation of pregnancy; Z37.0 Single live birth; O70.1 Second degree perineal laceration during delivery; Z20.828 Contact with and (suspected) exposure to other viral communicable diseases
CPT/HCPCS: 36415; 51701; 51702; 59025; 85025; 86592; A9270-GY; J0290; J2590; J3010; J3490; J7050; J7120; U0002

== ENCOUNTER 2023-08-10 15:54 | Inpatient (IN) | payer BC ==
[~2023-08-10 15:54] MED LIST: Lidocaine 1% 10 ML MDV ONE; Phenylephrine 1% 10 MG/ML SDV ONE
[2023-08-10] MEDS ORDERED: Acetaminophen 325 MG Tab PO PRN (16:24)
[2023-08-10] MEDS ORDERED: Ampicillin 2 GM in Sodium Chloride 0.9% 100 ML IV ONE (16:24)
[2023-08-10] MEDS ORDERED: Ondansetron 4 MG/2 ML SDV IVPUSH PRN (16:24)
[2023-08-10] MEDS ORDERED: Lidocaine 1% 50 ML MDV INJECT PRN (16:24)
[2023-08-10] MEDS ORDERED: Calcium Carbonate 500 MG Tab.Chew PO PRN (16:24)
[2023-08-10] MEDS ORDERED: Oxytocin/Lactated Ringers 30 UNIT/500 ML BAG IV STA (16:28)
[2023-08-10 16:56] LABS: BASOPHILS PERCENT AUTO 0.3 % (0.0-1.0); EOSINOPHILS ABSOLUTE AUTO 0.2 K/mm3 (0.0-0.4); EOSINOPHILS PERCENT AUTO 2.1 % (0.0-6.0); HEMATOCRIT 38.4 % (37.0-47.0); IMMATURE GRAN ABSOLUTE AUTO 0.04 K/mm3 (0.00-0.05); IMMATURE GRAN PERCENT AUTO 0.4 % (0.0-0.4); LYMPHOCYTES PERCENT AUTO 17.4 % (24.0-44.0); MEAN CORPUSCULAR HEMOGLOBIN 29.3 pg (28.0-32.0); MEAN CORPUSCULAR HGB CONC 33.9 g/dl (32.0-36.0); MEAN CORPUSCULAR VOLUME 86.5 fl (83.0-99.0); MEAN PLATELET VOLUME 9.9 fl (9.4-12.3); MONOCYTES ABSOLUTE AUTO 0.7 K/mm3 (0.0-0.8); MONOCYTES PERCENT AUTO 6.5 % (0.0-8.0); NEUTROPHILS ABSOLUTE AUTO 8.2 K/mm3 (1.8-7.7); NEUTROPHILS PERCENT AUTO 73.3 % (41.0-71.0); PLATELET COUNT,PLT 248 K/mm3 (150-400); RED BLOOD CELL COUNT 4.44 M/mm3 (4.10-5.30); WHITE BLOOD CELL COUNT,WBC 11.18 K/mm3 (3.9-11.3)
[2023-08-10] MEDS: Lactated Ringers 1,000 ML IV SCH ×3 (17:11→23:03)
[2023-08-10] MEDS ORDERED: diphenhydrAMINE 50 MG/ML SDV IVPUSH PRN (20:13)
[2023-08-10] MEDS ORDERED: fentaNYL 100 MCG/2 ML SDV EPIDUR PRN (20:13)
[2023-08-10] MEDS ORDERED: Bupivacaine/fentaNYL/NS 100 ML Bag EPIDUR PRN (20:13)
[2023-08-10] MEDS ORDERED: ePHEDrine 50 MG/ML SDV IVPUSH PRN (20:13)
[2023-08-10] MEDS ORDERED: Ampicillin 1 GM in Sodium Chloride 0.9% 100 ML IV SCH (21:00)
[2023-08-10] MEDS ORDERED: Oxytocin/Lactated Ringers 30 UNIT/500 ML BAG IV ONE (23:30)
[2023-08-11] MEDS ORDERED: Acetaminophen 325 MG Tab PO PRN (02:53)
[2023-08-11] MEDS ORDERED: Witch Hazel Medicated Pads 40/Jar TOP PRN (02:53)
[2023-08-11] MEDS ORDERED: Benzocaine/Menthol 20%-0.5% Spray 78 GM Cannister TOP PRN (02:53)
[2023-08-11] MEDS: Ibuprofen 600 MG Tab PO PRN ×2 (03:11→12:51)
[2023-08-11] MEDS: Docusate Sodium 100 MG Cap PO PRN (18:40)
[2023-08-12] MEDS: Docusate Sodium 100 MG Cap PO PRN (08:36)
== END 2023-08-12 11:59 | disposition home or self-care (01) | DRG 560 ==
LOC: JD.OBCHECK 15:54 → JD.OB 16:00 → JD.OBCHECK 16:23 → JD.OB 16:24 → OBSVTOIN 23:52 → JD.OB 23:53
PROVIDERS: ADMIT Obstetrics & Gynecology; ATTEND Obstetrics & Gynecology
PROC: 10E0XZZ Delivery of Products of Conception, External Approach (ICD-10-PCS; principal; 2023-08-11)
PROC: 3E0R3BZ Introduction of Anesthetic Agent into Spinal Canal, Percutaneous Approach (ICD-10-PCS; 2023-08-11)
PROC: 00HU33Z Insertion of Infusion Device into Spinal Canal, Percutaneous Approach (ICD-10-PCS; 2023-08-11)
PROC: 0KQM0ZZ Repair Perineum Muscle, Open Approach (ICD-10-PCS; 2023-08-11)
PROC: 10907ZC Drainage of Amniotic Fluid, Therapeutic from Products of Conception, Via Natural or Artificial Opening (ICD-10-PCS; 2023-08-11)
PROC: 3E0334Z Introduction of Serum, Toxoid and Vaccine into Peripheral Vein, Percutaneous Approach (ICD-10-PCS; 2023-08-11)
DX: O99.824 Streptococcus B carrier state complicating childbirth (principal); Z3A.40 40 weeks gestation of pregnancy; O26.893 Other specified pregnancy related conditions, third trimester; Z67.11 Type A blood, Rh negative; Z37.0 Single live birth; O48.0 Post-term pregnancy; O70.1 Second degree perineal laceration during delivery; O77.0 Labor and delivery complicated by meconium in amniotic fluid; O76 Abnormality in fetal heart rate and rhythm complicating labor and delivery
CPT/HCPCS: 36415; 51702; 59025; 59409; 85025; 85461; 86592; 86850; 86900; 86901; A9270-GY; J0290; J2371; J2790; J3010; J3490; J7120; J7999